=== PATIENT | female | born 1955 | race African-American/Black ===

== ENCOUNTER 2018-11-22 08:38 | Outpatient (CLI) | payer MEDICAID ==
[~2018-11-22] VITALS: Ht 157.5 cm; Wt 62.6 kg
--- NOTE | 2018-11-22 18:45 | Consultation ---
DATE OF CONSULTATION: 11/22/2018 GASTROENTEROLOGY CONSULTATION CONSULTING PHYSICIAN: Dany Thornton M.D. CHIEF COMPLAINT: Abdominal pain, bloating, referral for screening colonoscopy. PAST MEDICAL HISTORY: 1. Hypertension. 2. Hyperglycemia. 3. Asthma. 4. Breast lump. PAST SURGICAL HISTORY: None. MEDICATIONS: Albuterol, amlodipine, losartan, hydrochlorothiazide, pantoprazole, aspirin. FAMILY HISTORY: No family history of GI malignancies. SOCIAL HISTORY: The patient denies alcohol, but smokes about 5 to 8 cigarettes per day. No drug usage except for sometimes marijuana. ALLERGIES: No known drug allergies. REVIEW OF SYSTEMS: Positive for abdominal pain, bloating and few episodes of vomiting. PHYSICAL EXAMINATION: VITAL SIGNS: Temperature 97.7, blood pressure is 138/70, pulse 69, respirations 20. HEENT: Normocephalic and atraumatic. Sclerae anicteric. NECK: Supple. No evidence of lymphadenopathy. CARDIOVASCULAR: Regular rate and rhythm. Plus S1 and S2. No obvious murmur. LUNGS: Clear to auscultation bilaterally. ABDOMEN: Positive bowel sounds. Soft and nontender. No rebound. No guarding. No peritoneal sign. EXTREMITIES: No cyanosis, no clubbing, no edema. ASSESSMENT AND PLAN: This is a 63-year-old female without any prior history of colonoscopy, and needs screening colonoscopy. Also complained of some abdominal pain and bloating, so plan will be to schedule her for colonoscopy. The patient was given instruction and information about colonoscopy today and she will be scheduled when authorization is approved. Dany Thornton M.D. DR: DINH JOB#: [id number] CC:
[2018-11-23] MEDS ORDERED: PANTOPRAZOLE SO40 MG ORAL (08:06)
[2018-11-23] MEDS ORDERED: AMLODIPINE BESY10 MG ORAL (08:06)
[2018-11-23] MEDS ORDERED: ASPIRIN EC81 MG ORAL (08:06)
[2018-11-23] MEDS ORDERED: HYDROCHLOROTHIA25 MG ORAL (08:06)
[2018-11-23] MEDS ORDERED: FLUTICASONE PRO16 G1 NASAL (08:06)
[2018-11-23] MEDS ORDERED: LOSARTAN POTASS50 MG ORAL (08:06)
[2018-11-23] MEDS ORDERED: ALBUTEROL SULF8.5 GM INH (08:06)
== END 2018-11-22 10:38 | disposition home or self-care (01) ==
LOC: PAN 08:38
DX: R10.9 Unspecified abdominal pain (principal); R14.0 Abdominal distension (gaseous); I10 Essential (primary) hypertension; Z79.899 Other long term (current) drug therapy; Z79.82 Long term (current) use of aspirin; F17.210 Nicotine dependence, cigarettes, uncomplicated; R11.10 Vomiting, unspecified
CPT/HCPCS: 99202